=== PATIENT | female | born 1980 | race African-American/Black ===

== ENCOUNTER 2021-05-24 11:44 | Day surgery (SDC) | payer BC ==
[2021-05-24 13:05] LABS: HEMATOCRIT 36.2 % (32.4-45.2); HEMOGLOBIN 12.3 GM/dL (10.7-15.3); MCH 29.1 pg (25.7-33.7); MCHC 33.9 g/dl (32.0-36.0); MEAN CELL VOLUME 85.8 fl (80-96); MEAN PLT VOLUME 9.1 fl (7.5-11.1); PLATELET COUNT 200 10^3/uL (134-434); RBC 4.22 M/mm3 (3.60-5.2); RDW 13.4 % (11.6-15.6)
[2021-05-24 13:14] LABS: INR 1.01 (0.83-1.09); PROTHROMBIN TIME (PATIENT) 12.2 SEC (9.7-13.0)
[2021-05-24 13:17] LABS: ACTIVATED PTT 31.1 SECONDS (25.2-36.5)
[2021-05-24 13:28] LABS: CALCIUM 9.2 mg/dL (8.5-10.1)
[2021-05-24 13:29] LABS: ALBUMIN 3.2 g/dl (3.4-5.0); BLOOD UREA NITROGEN 5.9 mg/dL (7-18)
[2021-05-24 13:36] LABS: BILIRUBIN,TOTAL 0.3 mg/dL (0.2-1)
[2021-05-24 13:37] LABS: CREATININE 0.5 mg/dL (0.55-1.3)
[2021-05-24 15:50] VITALS: BMI 32.5
[2021-05-24] MEDS ORDERED: oxyCODONE HCL 5 MG TABLET PO PRN (17:57)
[2021-05-24] MEDS ORDERED: ONDANSETRON 4 MG/2 ML VIAL IVPUSH PRN (18:00)
[2021-05-24] MEDS ORDERED: LACTATED RINGERS SOLUTION 1,000 ML IV SCH (18:00)
[2021-05-24] MEDS ORDERED: ACETAMINOPHEN 1000 MG/100 ML VIAL (NON FORMULARY) IVPB PRN (18:01)
[2021-05-24] MEDS ORDERED: PROGESTERONE 50 MG/ML IV SCH (18:30)
[2021-05-24] MEDS ORDERED: ACETAMINOPHEN 325 MG TABLET (FP) PO PRN (18:59)
[2021-05-24] MEDS: CEFAZOLIN 2 GM in DEXTROSE 5%-WATER - 100 ML IVPB SCH ×2 (19:43→23:39)
[2021-05-24] MEDS ORDERED: ceFAZolin 2 GRAM PREMIX BAG IVPB SCH (23:00)
[2021-05-25] MEDS: CEFAZOLIN 2 GM in DEXTROSE 5%-WATER - 100 ML IVPB SCH (05:34)
[2021-05-25 11:56] VITALS: BP 94/57; PULSE 81; TEMP 98.1
== END 2021-05-25 10:47 | disposition home or self-care (01) ==
LOC: JLAB 11:44 → JASUSAT 11:44 → EDSTATUS 12:04 → J3W 19:39 → JASUSAT 05-25 10:47
PROVIDERS: ATTEND Specialist
PROC: 0UVC7ZZ Restriction of Cervix, Via Natural or Artificial Opening (ICD-10-PCS; principal; 2021-05-24 17:00)
DX: O09.892 Supervision of other high risk pregnancies, second trimester (principal); O09.512 Supervision of elderly primigravida, second trimester; O34.32 Maternal care for cervical incompetence, second trimester; Z3A.16 16 weeks gestation of pregnancy; E66.9 Obesity, unspecified; Z91.013 Allergy to seafood; Z91.011 Allergy to milk products
CPT/HCPCS: 36415; 80053; 85027; 85610; 85730; 86850; 86900; 86901; 94760; C9803; U0003; U0005

== ENCOUNTER 2021-07-01 16:42 | Inpatient (IN) | payer BC ==
[2021-07-01] MEDS: DEXTROSE 5%-LACTATED RINGERS 1,000 ML IV SCH ×2 (17:25→22:00)
[2021-07-01] MEDS ORDERED: AMPICILLIN - 2 GM in SODIUM CHLORIDE 100 ML IVPB ONE (17:36)
[2021-07-01] MEDS ORDERED: INDOMETHACIN 50 MG CAPSULE PO ONE (17:37)
[2021-07-01] MEDS ORDERED: TERBUTALINE SULFATE 1 MG/1 ML VIAL SQ ONE (17:37)
[2021-07-01] MEDS ORDERED: AMPICILLIN SODIUM 2 GM VIAL ONE (17:38)
[2021-07-01] MEDS ORDERED: ZOLPIDEM TARTRATE 5 MG TABLET PO ONE (21:30)
[2021-07-01 21:41] VITALS: BMI 32.8
[2021-07-01] MEDS ORDERED: ZOLPIDEM TARTRATE 5 MG TABLET ONE (21:43)
[2021-07-01] MEDS: INDOMETHACIN 25 MG CAPSULE PO SCH (22:30)
[2021-07-02 08:10] VITALS: PULSE 85
[2021-07-02] MEDS: INDOMETHACIN 25 MG CAPSULE PO SCH (10:32)
[2021-07-02] MEDS ORDERED: BETAMET ACET/BETAMET NA PH 30 MG/5 ML VIAL IM ONE (11:35)
[2021-07-02] MEDS ORDERED: BETAMET ACET/BETAMET NA PH 30 MG/5 ML VIAL ONE (12:06)
[2021-07-02 12:31] VITALS: BP 115/61; TEMP 98.6
== END 2021-07-02 13:00 | disposition short-term general hospital (02) | DRG 833 ==
LOC: JDEL 16:42 → JLDR 21:00 → OBSVTOIN 07-02 11:49
PROVIDERS: ADMIT Specialist; ATTEND Specialist
DX: O34.32 Maternal care for cervical incompetence, second trimester (principal); Z3A.22 22 weeks gestation of pregnancy
CPT/HCPCS: 96372; C9803; G0378; U0003; U0005